=== PATIENT | male | born 1995 | race Caucasian/White ===

== ENCOUNTER 2017-05-10 22:31 | Inpatient (IN) | payer OTHER ==
[~2017-05-10] VITALS: Ht 15.2 cm; Wt 93.9 kg
[2017-05-11 00:14] LABS: MEAN CORPUSCULAR HEMOGLOBIN 31.1 pg (27.0-33.0); MEAN CORPUSCULAR HGB CONC 34.3 g/dl (32.0-36.5); MEAN CORPUSCULAR VOLUME 90.6 fl (80.0-96.0); RED CELL DISTRIBUTION WIDTH 12.2 % (11.5-14.5); WHITE BLOOD COUNT 6.7 K/mm3 (4.0-10.0)
[2017-05-11 00:21] LABS: METHADONE URINE NEGATIVE (NEGATIVE)
[2017-05-11 00:49] LABS: ALBUMIN 4.4 GM/DL (3.2-5.2); ALBUMIN/GLOBULIN RATIO 1.29 (1.00-1.93); ALKALINE PHOSPHATASE 94 U/L (45-117); ALT/SGPT 33 U/L (12-78); ANION GAP 11 MEQ/L (8-16); AST/SGOT 31 U/L (15-37); BILIRUBIN,DIRECT < 0.1 MG/DL (0.0-0.2); BILIRUBIN,TOTAL 0.3 MG/DL (0.2-1.0); BLOOD UREA NITROGEN 11 MG/DL (7-18); CALCIUM LEVEL 8.8 MG/DL (8.5-10.1); CARBON DIOXIDE LEVEL 24 MEQ/L (21-32); CHLORIDE LEVEL 108 MEQ/L (98-107); CREATININE FOR GFR 0.92 MG/DL (0.70-1.30); GLOMERULAR FILTRATION RATE > 60.0 (>60); GLUCOSE, FASTING 93 MG/DL (70-105); POTASSIUM SERUM 4.4 MEQ/L (3.5-5.1); SODIUM LEVEL 143 MEQ/L (136-145); TOTAL PROTEIN 7.8 GM/DL (6.4-8.2)
[2017-05-11] MEDS: NICOTINE 14 MG/24 HR TRANSDERMAL TD SCH (09:00)
[2017-05-11 12:23] VITALS: BP 168/92
[2017-05-11 13:00] VITALS: BP 140/65
[2017-05-11] MEDS ORDERED: MAALOX 30 ML SUSP *UDC PO PRN (13:45)
[2017-05-11] MEDS ORDERED: LORazepam 2 MG TAB PO PRN (13:45)
[2017-05-11] MEDS ORDERED: ACETAMINOPHEN TAB 650MG DOSE (2X325MG) PO PRN (13:45)
[2017-05-11] MEDS ORDERED: MOM 30ML SUSPENSION UDC PO PRN (13:45)
[2017-05-11] MEDS: MULTIVITAMINS/MINERALS THERAP 1 TAB PO SCH (16:47)
[2017-05-11] MEDS: FOLIC ACID 1 MG TAB PO SCH (16:47)
[2017-05-11] MEDS: THIAMINE 100 MG TAB PO SCH ×2 (16:47→21:00)
[2017-05-11 18:00] VITALS: BP 104/50
--- NOTE | 2017-05-11 18:38 | MHHPEPDOC ---
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 He described that extremely intoxicated and began to feel guilt or remorse for his brother's 5 years ago by suicide in the various abuses he felt he had wrought on his stepsister and stepmother. He described that he remembered a small amount of what happened , but stated that he felt that he it stated he wanted his life. Reportedly he had told a friend, whom had brought him to a sr. media manager, that had forwarded him to the emergency room for evaluation. When the patient met with he described that although he was interested in talking to a therapist, he was not experiencing any severe psychiatric symptoms prior to his admission and believes that his presentation is primarily provoked by alcohol. PSYCHIATRIC ROS: Affective: The patient denies any episodes of unprovoked depressed mood associated with neurovegetative symptoms lasting longer than 2 weeks with symptoms present nearly everyday. The patient denies any episodes of euphoria/ dysphoria associated with decreased need for sleep, hedonism, talkatively or impulsivity lasting longer than 5 days. Anxiety: The patient denies any excessive worry associated with physical symptoms. They deny any experience of discreet panic in the past. Trauma: The patient denies any traumatic events associated with nightmares or intrusive thoughts. Psychosis:The patient denies any experiences of auditory or visual hallucinations. They deny any episodes of paranoia or delusional thinking in the past Personality: not screened PAST PSYCHIATRIC HISTORY: Prior Psychiatric Diagnosis: none Previous admissions: none Current Medications: none Suicide attempts: none Psychotropic Medication History: none ALLERGIES: Please see below. FAMILY PSYCHIATRIC HISTORY: brother committed suicide 5 years ago, diagnosis of schizophrenia and mother had a diagnosis of bipolar with hospitalizations. 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 States that he does drink to excess sometimes that during these episodes he does become excessively emotional. MEDICAL HISTORY: None MENTAL STATUS EXAMINATION: General: Well dressed with good hygiene Speech: Spontaneous and fluid Thought processes: Linear and logical Thought content: remorse for his actions Abstract reasoning, and computation: Intact Description of associations: Intact Description of abnormal or psychotic thoughts:Denies any suicidal or homicidal ideation. Denies any auditory or visual hallucinations. Does not appear to be responding to internal stimuli. Does not appear to be endorsing any bizarre or paranoid ideation. Judgment: fair Insight: fair Orientation: Alert and orientated 3 Recent and remote memory: Intact Attention span and concentration: Intact Fund of knowledge: Adequate Mood: "okay" Affect: mildly dysthymic DIAGNOSES: 1. Unspecified depressive disorder rule out substance induced rule out adjustment disorder 2. Alcohol use disorder, moderate, in early remission ASSESSMENT: 22-year-old man with a history of no mental health diagnoses or treatment, presents after becoming intoxicated and claiming suicidal ideation. After becoming sober he has redacted any claims of suicidality PROBLEM LIST: 1. Substance use 2. Ineffective coping 3. Depression INITIAL TREATMENT PLAN: 1. Patient was admitted on a 9.39 legal status. 2. Complete history was obtained. 3. With patients permission, family will be contacted and database will be expanded. 4. Patients medication regimen will be reviewed and changed accordingly. -Placed on alcohol withdrawal protocols 5. Patient will be provided with protected environment. 6. Patient will be treated with individual, group, and milieu therapies. 7. Patient will receive supportive psych-education. 8. Discharge planning will commence immediately. 9. Outpatient follow-up treatment will be strongly recommended. 10. The initial treatment plan will focus initially on: further evaluation ESTIMATED LENGTH OF STAY: 2-3 DAYS. TIME SPENT MINUTES 50 mins Laboratory Data 24H Labs Laboratory Tests 2 05/11/17 00:05: Anion Gap 11, Glomerular Filtration Rate > 60.0, Calcium Level 8.8, Aspartate Amino Transf (AST/SGOT) 31, Alanine Aminotransferase (ALT/SGPT) 33, Alkaline Phosphatase 94, Total Bilirubin 0.3, Direct Bilirubin < 0.1, Total Protein 7.8, Albumin 4.4, Albumin/Globulin Ratio 1.29, Thyroid Stimulating Hormone (TSH) 0.611, Salicylates Level < 1.7L, Urine Amphetamines Screen NEGATIVE, Urine Benzodiazepines Screen NEGATIVE, Urine Opiates Screen NEGATIVE, Urine Methadone Screen NEGATIVE, Acetaminophen Level < 2.0L, Urine Barbiturates Screen NEGATIVE , Urine Phencyclidine Screen NEGATIVE, Urine Cocaine Metabolite Screen NEGATIVE , Urine Cannabinoids Screen NEGATIVE, Ethyl Alcohol Level 0.176H CBC/BMP Laboratory Tests 05/11/17 00:05 Red Blood Count 5.05, Mean Corpuscular Volume 90.6, Mean Corpuscular Hemoglobin 31.1, Mean Corpuscular Hemoglobin Concent 34.3, Red Cell Distribution Width 12.2 Allergies Coded Allergies: Sulfa Antibiotics (Verified Allergy, Unknown, patient does not know, ) GME ATTESTATION My preceptor for this patient encounter was physically present in the building during the encounter and was fully available. As needed, all aspects of the patient interview, examination, medical decision making process, and medical care plan development were reviewed and approved by the preceptor. Preceptor is aware and concurs with the plan as stated in the body of this note and will attest to such by his/her cosignature. KARIE GONSALVES DO May 11, 2017 18:38
[2017-05-12 06:36] VITALS: BP 120/58
[2017-05-12] MEDS: FOLIC ACID 1 MG TAB PO SCH (09:00)
[2017-05-12] MEDS: NICOTINE 14 MG/24 HR TRANSDERMAL TD SCH (09:00)
[2017-05-12] MEDS: MULTIVITAMINS/MINERALS THERAP 1 TAB PO SCH (09:00)
[2017-05-12] MEDS: THIAMINE 100 MG TAB PO SCH ×2 (09:00→22:41)
[2017-05-12 18:00] VITALS: BP 135/69
[2017-05-12 18:29] VITALS: BP 128/69
--- NOTE | 2017-05-12 20:12 | MHIPNPDOC ---
[facility] Progress Note Progress Note DATE OF SERVICE: 05/12/17 INTERVAL HISTORY: Medication Side effects: is on no current psychiatric medications. Behavior/events: no incidents overnight, has been noted to be social with other patients Group Attendance: attendance groups infrequently Psychiatric Symptoms: reports no symptoms of depression or anxiety this time other than the anxiety created by separation his friends. He has no complaints today. VITAL SIGNS: See below. NEW TEST RESULTS: See below CURRENT MEDICATIONS: See below. MENTAL STATUS EXAMINATION: General: Well dressed with good hygiene Speech: Spontaneous and fluid Thought processes: Linear and logical Thought content: future orientated Abstract reasoning, and computation: Intact Description of associations: Intact Description of abnormal or psychotic thoughts:Denies any suicidal or homicidal ideation. Denies any auditory or visual hallucinations. Does not appear to be responding to internal stimuli. Does not appear to be endorsing any bizarre or paranoid ideation. Judgment: improving Insight: improving Orientation: Alert and orientated 3 Recent and remote memory: Intact Attention span and concentration: Intact Fund of knowledge: Adequate Mood: "okay" Affect: Euthymic with a full range DIAGNOSES: 1. Unspecified depressive disorder. 2. Alcohol use disorder, moderate, in early remission ASSESSMENT: improving MANAGEMENT PLAN: Medications: no medications at this time, continue alcohol withdrawal for conservative management Psychotherapy: encourage attendance Social: to a command meeting was 1130 this morning, discharge Monday Misc: none Disposition: The patient will need of further inpatient stay to address disposition needs. TIME SPENT: 15 minutes. Vital Signs Vital Signs Date Time Temp Pulse Resp B/P (MAP) Pulse Ox O2 Delivery O2 Flow Rate FiO2 05/12/17 18:30 Room Air 05/12/17 18:29 55 128/69 05/12/17 18:00 98.5 16 05/11/17 12:23 97 Current Medications Current Medications Acetaminophen (Tylenol Tab) 650 mg Q6HP PRN PO HEADACHE or DISCOMFORT; Start at 13:45; Stop 06/10/17 at 13:44 Al Hydrox/Mg Hydrox/Simethicone (Mylanta) 30 ml Q4HP PRN PO HEARTBURN/ INDIGESTION; Start 05/11/17 at 13:45; Stop 06/10/17 at 13:44 Folic Acid (Folic Acid) 1 mg DAILY PO Last administered on 05/12/17t 09:00; Start 05/11/17 at 09:00; Stop 06/10/17 at 08:59 Lorazepam (Ativan) 2 mg ASDIRECTED PRN PO SEE PROTOCOL; Start 05/11/17 at 13:45 ; Stop 05/18/17 at 13:44 Magnesium Hydroxide (Milk Of Magnesia) 30 ml DAILYPRN PRN PO CONSTIPATION; Start 05/11/17 at 13:45; Stop 06/10/17 at 13:44 Multivitamins (Theragram-M) 1 tab DAILY PO Last administered on 05/12/17 09:00 ; Start 05/11/17 at 09:00; Stop 06/10/17 at 08:59 Nicotine (Nicoderm Cq 14mg) 1 patch DAILY TD ; Start 05/11/17 at 09:00; Stop at 08:59 Thiamine HCl (Thiamine HCl) 100 mg BID PO Last administered on 05/12/17 09:00 ; Start 05/11/17 at 09:00; Stop 05/14/17 at 08:59 Trazodone HCl (Desyrel) 50 mg QHSP PRN PO INSOMNIA; Start 05/11/17 at 13:45; Stop 06/10/17 at 13:44 Allergies Coded Allergies: Sulfa Antibiotics (Verified Allergy, Unknown, patient does not know, ) GME ATTESTATION My preceptor for this patient encounter was physically present in the building during the encounter and was fully available. As needed, all aspects of the patient interview, examination, medical decision making process, and medical care plan development were reviewed and approved by the preceptor. Preceptor is aware and concurs with the plan as stated in the body of this note and will attest to such by his/her cosignature. KARIE GONSALVES DO May 12, 2017 20:12
[2017-05-12 21:00] VITALS: BP 132/74
[2017-05-12] MEDS: traZODone 50 MG TAB PO PRN (22:41)
[2017-05-13 06:00] VITALS: BP 112/58
[2017-05-13] MEDS: NICOTINE 14 MG/24 HR TRANSDERMAL TD SCH (09:00)
[2017-05-13] MEDS: FOLIC ACID 1 MG TAB PO SCH (09:20)
[2017-05-13] MEDS: THIAMINE 100 MG TAB PO SCH ×2 (09:20→21:11)
[2017-05-13] MEDS: MULTIVITAMINS/MINERALS THERAP 1 TAB PO SCH (09:20)
[2017-05-13 12:00] VITALS: BP_SYST 11; BP_SYST 111; BP_DIAS 64; BP_DIAS 69
[2017-05-13 18:00] VITALS: BP 137/69
[2017-05-13 21:00] VITALS: BP 126/72
[2017-05-13] MEDS: traZODone 50 MG TAB PO PRN (23:30)
--- NOTE | 2017-05-14 03:16 | HPE ---
DATE OF ADMISSION: 05/11/2017 HISTORY OF PRESENT ILLNESS: Please refer to psychiatric history and evaluation for further details on this admission. This examination and history is intended for medical issues, which may need treatment, followup or consult on this 22-year-old male. ALLERGIES: SULFA. PRIMARY CARE PROVIDER: [facility]. 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 Ethyl alcohol (EtOH): On weekends he will drink beer or liquor. He chews 3-4 times a week. Recreational drug use: None. PAST MEDICAL HISTORY: Negative. PAST SURGICAL HISTORY: Negative. HOME MEDICATIONS: None. LABORATORY STUDIES: CBC was normal. Sodium 143, potassium 4.4, chloride 108, CO2 24, BUN and creatinine were 11 and 0.92. EtOH was 0.176. REVIEW OF SYSTEMS: 10-system review was done, was unremarkable, no complaints. OBJECTIVE: 22-year-old cooperative male in no acute distress. Blood pressure 132/74, pulse 58, respirations 18, temperature 98. Patient is alert and oriented times three. Pupils equal and react to light. Extraocular muscles intact. Cornea and sclerae clear. Conjunctivae were normal. No facial asymmetry. Pharynx, tongue and gums pink and moist. Tongue is midline. Neck is supple without lymphadenopathy. No thyromegaly, no goiter. Chest clear to auscultation without wheeze or retraction. Heart is regular. Abdomen is benign. Bowel sounds positive. Genitourinary/rectal: Not done. Extremities: Show equal strength, full range of motion. No cyanosis, clubbing or edema. Peripheral pulses equal and palpable bilaterally. Skin is warm and dry. IMPRESSION/PLAN: Psychiatric plan per psychiatry. No acute medical issues.
--- NOTE | 2017-05-14 05:19 | IPN ---
DATE OF SERVICE: 05/13/2017 Evaluated a 22-year-old male who was admitted to the inpatient mental health unit after he got intoxicated with alcohol and during that episode he stated that he was feeling suicidal. He told a friend that he wanted to kill himself and this friend told the home health clinical liaison and the home health clinical liaison took him to the emergency department at [facility]. The patient has consistently denied suicidal ideation, homicidal ideation and psychosis. He states today that "I feel fine." He reports that he has been having good sleep and he reports no medication side effects. On assessment, the patient is alert, oriented times three, with good hygiene, good eye contact, dressed in hospital clothes. His speech is normal, his thought process is intact. His thought content is coherent. His mood and affect are euthymic. He is not responding to internal stimuli, not suicidal and not homicidal. At this moment, the patient is not a danger to self or others. Will followup.
[2017-05-14 06:00] VITALS: BP 107/55
[2017-05-14] MEDS: MULTIVITAMINS/MINERALS THERAP 1 TAB PO SCH (08:58)
[2017-05-14] MEDS: FOLIC ACID 1 MG TAB PO SCH (08:58)
[2017-05-14] MEDS: NICOTINE 14 MG/24 HR TRANSDERMAL TD SCH (09:00)
[2017-05-14 12:00] VITALS: BP 112/53
[2017-05-14 18:00] VITALS: BP 111/61
--- NOTE | 2017-05-14 18:15 | MHIPNPDOC ---
[facility] Progress Note Progress Note DATE OF SERVICE: 05/14/17 INTERVAL HISTORY: Medication Side effects: on no psychiatric medications at this time Behavior/events: has been friendly and amenable staff interventions, no events Group Attendance: has only intermittently gone to groups Psychiatric Symptoms: reports no symptoms of depression, anxiety or other psychiatric complaints today. Is excited about going home, he had questions about a weapons profile that would be placed on him he leaves. He was told that it would be best to ask his commanding officer and behavioral health at [place]. VITAL SIGNS: See below. NEW TEST RESULTS: See below CURRENT MEDICATIONS: See below. MENTAL STATUS EXAMINATION: General: Well dressed with good hygiene Speech: Spontaneous and fluid Thought processes: Linear and logical Thought content: future orientated, excited about discharge Abstract reasoning, and computation: Intact Description of associations: Intact Description of abnormal or psychotic thoughts:Denies any suicidal or homicidal ideation. Denies any auditory or visual hallucinations. Does not appear to be responding to internal stimuli. Does not appear to be endorsing any bizarre or paranoid ideation. Judgment: good Insight: good Orientation: Alert and orientated 3 Recent and remote memory: Intact Attention span and concentration: Intact Fund of knowledge: Adequate Mood: "okay" Affect: Euthymic with a full range DIAGNOSES: 1. Substance induced depressive disorder. 2. Alcohol use disorder, moderate, in early remission. ASSESSMENT: stable, pending discharge MANAGEMENT PLAN: Medications: discontinue trazodone as patient did not want to continue it given the risk of priapism. Psychotherapy: encouragement therapy Social: discharge tomorrow 10 AM, chain of command meeting was were completed Misc: none Disposition: The patient will need of further inpatient stay to address disposition needs. TIME SPENT: 15 minutes. Vital Signs Vital Signs Date Time Temp Pulse Resp B/P (MAP) Pulse Ox O2 Delivery O2 Flow Rate FiO2 05/14/17 12:00 97.7 46 16 112/53 (72) 05/12/17 18:30 Room Air 05/11/17 12:23 97 Current Medications Current Medications Acetaminophen (Tylenol Tab) 650 mg Q6HP PRN PO HEADACHE or DISCOMFORT; Start at 13:45; Stop 06/10/17 at 13:44 Al Hydrox/Mg Hydrox/Simethicone (Mylanta) 30 ml Q4HP PRN PO HEARTBURN/ INDIGESTION; Start 05/11/17 at 13:45; Stop 06/10/17 at 13:44 Folic Acid (Folic Acid) 1 mg DAILY PO Last administered on 05/14/17 08:58; Start 05/11/17 at 09:00; Stop 06/10/17 at 08:59 Lorazepam (Ativan) 2 mg ASDIRECTED PRN PO SEE PROTOCOL; Start 05/11/17 at 13:45 ; Stop 05/14/17 at 11:00; Status DC Magnesium Hydroxide (Milk Of Magnesia) 30 ml DAILYPRN PRN PO CONSTIPATION; Start 05/11/17 at 13:45; Stop 06/10/17 at 13:44 Multivitamins (Theragram-M) 1 tab DAILY PO Last administered on 05/14/17 08:58 ; Start 05/11/17 at 09:00; Stop 06/10/17 at 08:59 Nicotine (Nicoderm Cq 14mg) 1 patch DAILY TD ; Start 05/11/17 at 09:00; Stop at 08:59 Thiamine HCl (Thiamine HCl) 100 mg BID PO Last administered on 05/13/17 21:11 ; Start 05/11/17 at 09:00; Stop 05/14/17 at 08:59; Status DC Trazodone HCl (Desyrel) 50 mg QHSP PRN PO INSOMNIA Last administered on 23:30; Start 05/11/17 at 13:45; Stop 05/14/17 at 12:48; Status DC Allergies Coded Allergies: Sulfa Antibiotics (Verified Allergy, Unknown, patient does not know, ) GME ATTESTATION My preceptor for this patient encounter was physically present in the building during the encounter and was fully available. As needed, all aspects of the patient interview, examination, medical decision making process, and medical care plan development were reviewed and approved by the preceptor. Preceptor is aware and concurs with the plan as stated in the body of this note and will attest to such by his/her cosignature. KARIE GONSALVES DO May 14, 2017 18:15
[2017-05-15 06:26] VITALS: BP 112/60
[2017-05-15] MEDS: NICOTINE 14 MG/24 HR TRANSDERMAL TD SCH (08:52)
[2017-05-15] MEDS: FOLIC ACID 1 MG TAB PO SCH (08:54)
[2017-05-15] MEDS: MULTIVITAMINS/MINERALS THERAP 1 TAB PO SCH (08:54)
[2017-05-15] MEDS ORDERED: NICO14PA TD (10:04)
--- NOTE | 2017-05-15 19:35 | MHDSPDOC ---
[facility] Discharge Summary Discharge Summary DATE OF ADMISSION: May 11, 2017 at 09:51 DATE OF DISCHARGE: May 15, 2017 at 10:30 DISCHARGE DIAGNOSES: 1. Substance-abuse depressive disorder. 2. Alcohol use disorder, moderate, in early admission. REASON FOR ADMISSION: Suicidal statements in the context of being severely intoxicated CONSULTANTS INVOLVED: None TREATMENT AND PROGRESS ON THE UNIT : Legal status on admission: 9.39 Medication Management: patient few psychiatric medications as he believed his statements are primarily due to intoxication. He did try some trazodone for sleep which was helpful, however after being informed of the possible side effect priapism, the patient decided against taking his medication as he was knowledge except that risk. Psychotherapy: he attended groups at times but generally kept to himself Behavior: generally amenable with no acute episodes of agitation Discharge planning: the patient was slated for discharge shortly of presenting as his present symptoms have resolved quickly after his separation from alcohol. Outpatient recommendations: recommend outpatient therapy Pending studies on discharge: none DISCHARGE ASSESSMENT: 22-year-old man presents an intoxicated state after saying suicidal statements, has no psych history and is likely in a state of substance induced depression, the results without any intensive psychiatric interventions. MENTAL STATUS EXAMINATION ON DISCHARGE: General: Well dressed with good hygiene Speech: Spontaneous and fluid Thought processes: Linear and logical Thought content: future oriented, excited to go home Abstract reasoning, and computation: Intact Description of associations: Intact Description of abnormal or psychotic thoughts:Denies any suicidal or homicidal ideation. Denies any auditory or visual hallucinations. Does not appear to be responding to internal stimuli. Does not appear to be endorsing any bizarre or paranoid ideation. Judgment: fair Insight: fair Orientation: Alert and orientated 3 Recent and remote memory: Intact Attention span and concentration: Intact Fund of knowledge: Adequate Mood: "good" Affect: Euthymic with a full range PLAN/FOLLOWUP ARRANGEMENTS: [facility]. The social work team worked during the predischarge meeting in order to evaluate for further issues of lethality address them fully before discharge. They worked on safety planning with the patient's family members in order to ensure that the patient will have a safe and effective discharge. The amount of time spent in the coordination of care for this patient was approximately 30 minutes. Vital Signs/I&Os Vital Signs Date Time Temp Pulse Resp B/P (MAP) Pulse Ox O2 Delivery O2 Flow Rate FiO2 05/15/17 06:26 98.0 38 16 112/60 (77) 05/12/17 18:30 Room Air 05/11/17 12:23 97 Medications Scheduled Nicotine (Nicotine Transdermal Syst) 14 Mg/24 Hr Dis, 1 PATCH TD DAILY for SMOKING CESSATION, #7 Allergies Coded Allergies: Sulfa Antibiotics (Verified Allergy, Unknown, patient does not know, ) GME ATTESTATION My preceptor for this patient encounter was physically present in the building during the encounter and was fully available. As needed, all aspects of the patient interview, examination, medical decision making process, and medical care plan development were reviewed and approved by the preceptor. Preceptor is aware and concurs with the plan as stated in the body of this note and will attest to such by his/her cosignature. KARIE GONSALVES DO May 15, 2017 19:35
== END 2017-05-15 10:30 | disposition home or self-care (01) | DRG 899 ==
LOC: M ED 05-11 06:39 → M ED INP 05-11 09:51 → M PSY 05-11 12:15
PROVIDERS: ADMIT Psychiatry & Neurology Psychiatry; ATTEND Psychiatry & Neurology Psychiatry
DX: F19.14 Other psychoactive substance abuse with psychoactive substance-induced mood disorder (principal); F10.129 Alcohol abuse with intoxication, unspecified; Z88.2 Allergy status to sulfonamides; F17.220 Nicotine dependence, chewing tobacco, uncomplicated

== ENCOUNTER 2020-04-17 17:49 | Inpatient (IN) | payer OTHER ==
[~2020-04-17] VITALS: Ht 182.9 cm; Wt 102.7 kg
[~2020-04-17 17:49] MED LIST: NICO14PA TD
[2020-04-17 19:56] LABS: HEMATOCRIT 46.3 % (42.0-52.0); HEMOGLOBIN 15.7 g/dl (13.5-17.5); MEAN CORPUSCULAR HEMOGLOBIN 30.1 pg (27.0-33.0); MEAN CORPUSCULAR HGB CONC 33.9 g/dl (32.0-36.5); MEAN CORPUSCULAR VOLUME 88.9 fl (80.0-96.0); PLATELET COUNT, AUTOMATED 273 10^3/uL (150-450); RED BLOOD COUNT 5.21 10^6/uL (4.30-6.10); WHITE BLOOD COUNT 7.6 10^3/uL (4.0-10.0)
[2020-04-17 20:01] LABS: AMPHETAMINES LEVEL URINE NEGATIVE (NEGATIVE); BARBITURATES URINE NEGATIVE (NEGATIVE); BENZODIAZEPINES URINE NEGATIVE (NEGATIVE); CANNABINOIDS URINE NEGATIVE (NEGATIVE); COCAINE METABOLITE URINE NEGATIVE (NEGATIVE); METHADONE URINE NEGATIVE (NEGATIVE); OPIATES URINE NEGATIVE (NEGATIVE); PHENCYCLIDINE URINE NEGATIVE (NEGATIVE)
[2020-04-17 20:14] LABS: ACETAMINOPHEN LEVEL < 2.0 UG/ML (10.0-30.0); ALBUMIN 4.4 GM/DL (3.2-5.2); ALT/SGPT 36 U/L (12-78); BILIRUBIN,DIRECT 0.1 MG/DL (0.0-0.2); BILIRUBIN,TOTAL 0.7 MG/DL (0.2-1.0); BLOOD UREA NITROGEN 12 MG/DL (7-18); CALCIUM LEVEL 9.2 MG/DL (8.5-10.1); CARBON DIOXIDE LEVEL 28 MEQ/L (21-32); CHLORIDE LEVEL 105 MEQ/L (98-107); ETHYL ALCOHOL (ETHANOL) < 0.003 % (0.000-0.010); GLOMERULAR FILTRATION RATE > 60.0 (>60); GLUCOSE, FASTING 102 MG/DL (70-100); POTASSIUM SERUM 3.7 MEQ/L (3.5-5.1); SALICYLATE LEVEL < 1.7 MG/DL (5.0-30.0); SODIUM LEVEL 138 MEQ/L (136-145); THYROID STIMULATING HORMONE 0.697 uIU/ML (0.358-3.740); TOTAL PROTEIN 7.9 GM/DL (6.4-8.2)
[2020-04-17] MEDS ORDERED: MOM 30ML SUSPENSION UDC PO PRN (22:15)
[2020-04-17] MEDS ORDERED: ACETAMINOPHEN TAB 650MG DOSE (2X325MG) PO PRN (22:15)
[2020-04-17] MEDS ORDERED: NICOTINE 21MG/24HR 1 EA TRANSDERMAL TD PRN (22:15)
[2020-04-17] MEDS ORDERED: MAALOX 30 ML SUSP *UDC PO PRN (22:15)
[2020-04-17] MEDS: OLANZapine ORAL DISINTEGRATING TAB 5MG PO PRN (23:45)
[2020-04-17] MEDS: traZODone 50 MG TAB PO PRN (23:45)
[2020-04-18 00:41] VITALS: BP 131/73
[2020-04-18 06:03] VITALS: BP 103/66
[2020-04-18] MEDS ORDERED: INFLUENZA QUADRIVALENT PF VACCINE 0.5ML SYRINGE (90686) IM ONE (09:00)
--- NOTE | 2020-04-18 15:53 | HPEPDOC ---
General Date of Admission April 17, 2020 at 22:04 Date of Service: April 18, 2020 Chief Complaint The patient is a 25-year-old male admitted with a reason for visit of Unspecified Anxiety Disorder. History of Present Illness Patient is 25 years old male w/o significant past medical history, who was a dmitted in the hospital with suicidal ideation. He denied any cardiovascular problem, breathing problem, GI problem or dysuria. He denies fever, chills, nausea, vomiting, shortness of breath, palpitations, diarrhea or dysuria Home Medications No Active Prescriptions or Reported Meds Allergies Coded Allergies: Sulfa (Sulfonamide Antibiotics) (Verified Allergy, Intermediate, 04/17/20) Past Medical History Medical History None Family History Mother has diabetes Social History * Smoker: other (vape) Alcohol: occationally Drugs: denies A-FIB/CHADSVASC A-FIB History Current/History of A-Fib/PAF?: No Current PO Anticoag Therapy: No Review of Systems Constitutional: Denies: Chills Eyes: Denies: Pain, Vision change ENT: Denies: Head Aches Skin: Denies: Rash, Lesions Pulmonary: Denies: Dyspnea Cardiovascular: Denies: Chest Pain, Palpitations Gastrointestinal: Denies: Nausea Genitourinary: Denies: Dysuria, Frequency Hematologic: Denies: Bruising Endocrine: Denies: Polydipsia Musculoskeletal: Denies: Neck Pain Neurological: Denies: Weakness, Numbness Psych: Reports: Anxiety, Depression Physical Examination General Exam: Positive: Alert, Cooperative Eye Exam: Positive: PERRLA, Conjunctiva & lids normal ENT Exam: Positive: Atraumatic Neck Exam: Positive: Supple; Negative: JVD Chest Exam: Positive: Clear to auscultation Heart Exam: Positive: Rate Normal Telemetry: Positive: No significant arrhythmia Abdomen Exam: Positive: Normal bowel sounds Extremity Exam: Negative: Clubbing Skin Exam: Positive: Nl turgor and temperature Neuro Exam: Positive: Normal Gait, Strength at 5/5 X4 ext, Cranial Nerves 3-12 NL Psych Exam: Positive: Anxiety, Oriented x 3 Vital Signs Vital Signs Date Time Temp Pulse Resp B/P (MAP) Pulse Ox O2 Delivery O2 Flow Rate FiO2 04/18/20 06:03 98.1 56 14 103/66 (78) 04/18/20 00:41 97 Room Air Laboratory Data Labs 24H Laboratory Tests 2 04/17/20 19:26: Nucleated Red Blood Cells % (auto) 0.0, Urine Opiates Screen NEGATIVE, Urine Methadone Screen NEGATIVE, Urine Barbiturates Screen NEGATIVE, Urine Phencycli dine Screen NEGATIVE, Urine Amphetamines Screen NEGATIVE, Urine Benzodiazepines Screen NEGATIVE, Urine Cocaine Metabolite Screen NEGATIVE, Urine Cannabinoids Screen NEGATIVE 04/17/20 19:27: Anion Gap 5L, Glomerular Filtration Rate > 60.0, Calcium Level 9.2, Total Bilirubin 0.7, Direct Bilirubin 0.1, Aspartate Amino Transf (AST/SGOT) 17, Alanine Aminotransferase (ALT/SGPT) 36, Alkaline Phosphatase 70, Total Protein 7.9, Albumin 4.4, Albumin/Globulin Ratio 1.3, Thyroid Stimulating Hormone (TSH) 0.697, Salicylates Level < 1.7L, Acetaminophen Level < 2.0L, Ethyl Alcohol Level < 0.003 CBC/BMP Laboratory Tests 04/17/20 19:26 04/17/20 19:27 Assessment/Plan Patient is 25 years old male w/o significant past medical history, who was admitted in the hospital with suicidal ideation. He denied any cardiovascular problem, breathing problem, GI problem or dysuria. He denies fever, chills, nausea, vomiting, shortness of breath, palpitations, diarrhea or dysuria Problems (1) Depression Status: Acute Problem Text: Will defer treatment of depression to psych team Plan / VTE VTE Prophylaxis Ordered?: No VTE Exclusion Mechanical Proph: Low Risk for VTE RENEE GLASS DO April 18, 2020 15:53
[2020-04-18 16:15] VITALS: BP 140/75
[2020-04-18] MEDS ORDERED: FLUoxetine 10 MG CAP PO ONE (20:00)
[2020-04-18] MEDS: traZODone 50 MG TAB PO PRN (20:08)
[2020-04-18] MEDS: OLANZapine ORAL DISINTEGRATING TAB 5MG PO PRN (20:08)
[2020-04-19 06:21] VITALS: BP 133/71
[2020-04-19] MEDS: FLUoxetine 10 MG CAP PO SCH (09:07)
[2020-04-19 16:54] VITALS: BP 148/70
[2020-04-19] MEDS: OLANZapine ORAL DISINTEGRATING TAB 5MG PO PRN (20:26)
[2020-04-19] MEDS: traZODone 50 MG TAB PO PRN (20:26)
[2020-04-19] MEDS ORDERED: traZODone 50 MG TAB PO ONE (22:30)
[2020-04-20 06:14] VITALS: BP 140/71
[2020-04-20] MEDS: FLUoxetine 10 MG CAP PO SCH (08:49)
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
[2020-04-20 15:18] VITALS: BP 125/63
[2020-04-20] MEDS: OLANZapine ORAL DISINTEGRATING TAB 5MG PO PRN (19:01)
[2020-04-20] MEDS ORDERED: ARIPiprazole 2 MG TAB PO SCH (21:00)
[2020-04-20] MEDS: traZODone 50 MG TAB PO PRN (21:44)
[2020-04-21 06:10] VITALS: BP 114/58
[2020-04-21] MEDS: FLUoxetine 10 MG CAP PO SCH (08:49)
--- NOTE | 2020-04-21 09:17 | MHIPNPDOC ---
[facility] Progress Note Progress Note The patient was seen on 04/21/20. 25-year-old man is seen in follow-up, he reports no changes in his paranoid thoughts as well as his homicidal urges to harm his child and . The patient reports that he is still feeling quite depressed and paranoid about others. He is still quite guarded during the discussion. Vital Signs Vital Signs Date Time Temp Pulse Resp B/P (MAP) Pulse Ox O2 Delivery O2 Flow Rate FiO2 04/21/20 06:10 97.6 60 16 114/58 (76) 96 Room Air Current Medications Current Medications Medications (Trade) Dose Ordered Sig/Adalberto Route PRN Reason Start Time Stop Time Status Last Admin Dose Admin Acetaminophen (Tylenol Tab) 650 mg Q6HP PRN PO HEADACHE or DISCOMFORT 04/17/20 22:15 Al Hydrox/Mg Hydrox/Simethicone (Mylanta) 30 ml Q4HP PRN PO HEARTBURN/INDIGESTION 04/17/20 22:15 Aripiprazole (AbiLIFY) 2 mg QHS PO 04/20/20 21:00 04/20/20 21:44 Fluoxetine HCl (PROzac) 10 mg DAILY PO 04/19/20 09:00 04/21/20 08:49 Home Med (Med Rec Complete!) ASDIRECTED XX 04/17/20 21:30 04/17/20 21:29 DC Magnesium Hydroxide (Milk Of Magnesia) 30 ml DAILYPRN PRN PO CONSTIPATION 04/17/20 22:15 Nicotine (Nicoderm Cq 21mg) 1 patch DAILY PRN TD Nicotine withdrawl 04/17/20 22:15 Olanzapine (ZyPREXA ZYDIS) 5 mg Q4HP PRN PO AGITATION 04/17/20 22:15 04/20/20 19:01 Trazodone HCl (Desyrel) 50 mg QHSP PRN PO INSOMNIA 04/17/20 22:15 04/20/20 21:44 Allergies Coded Allergies: Sulfa (Sulfonamide Antibiotics) (Verified Allergy, Intermediate, 04/17/20) Review of Systems Review of Systems Skin: Denies: Rash Gastrointestinal: Denies: Nausea, Vomiting, Diarrhea, Constipation Neurological: Denies: Weakness, Numbness Mental Status Examination General Appearance: well groomed Build: average Demeanor: average Eye Contact: avoidant Activity: average Behavior: withdrawn Speech: clear Mood: depressed Affect: constricted Thought Process: logical/linear Thought Content (Delusions): persecutory Thought Content (Other): preoccupied Oriented: Awake, Alert Insight: poor Judgment: Poor Psychosis: Psychotic Perceptions Problem List Problems: (1) OCD (obsessive compulsive disorder) Status: Acute Response to Treatment: Uncontrolled Discussed With: Nurse Problem Specific Plan: Monitor Clinically Problem Text: cotinue prozac 10 mg augment with more abilify at 5mg qhs (2) Paranoia Status: Acute Response to Treatment: Uncompensated Problem Text: increaase abilify (3) Alcohol use disorder Status: Chronic Response to Treatment: Uncontrolled Discussed With: Nurse Problem Specific Plan: Monitor Clinically (4) Homicidal ideation Status: Acute Response to Treatment: Controlled Problem Specific Plan: Monitor Clinically Problem Text: Will check if CPS report filed, no need for tarasof at this time as no plans means or intention at this time (5) Situational disturbance Status: Acute Problem Text: Likely problematic discharge with CPS being involved. Will need to ensure safety of child and prior to discharge. Medications No Active Prescriptions or Reported Meds KARIE GONSALVES DO Apr 21, 2020 09:17
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
[2020-04-21] MEDS: OLANZapine ORAL DISINTEGRATING TAB 5MG PO PRN ×2 (14:41→20:51)
[2020-04-21 17:13] VITALS: BP 136/73
[2020-04-21] MEDS: traZODone 50 MG TAB PO PRN (20:50)
[2020-04-22 06:19] VITALS: BP 109/50
--- NOTE | 2020-04-22 09:17 | MHIPNPDOC ---
[facility] Progress Note Progress Note DATE OF SERVICE: 04/22/20 Events Overnight: none Group Attendance:: intermittent Symptom changes (psych ROS): still reports some frightening thoughts of harming his , he reports better control and less paranoia, he reports that he's open to going today long-term treatment facility Staff Report: staff report. The patient is still quite distorted and paranoid, feeling that others are doing things to him and he is still quite sexually preoccupied. Medical ROS: Gen: -fevers, chills Cardio: -chest pain, palpations Carlyle: -SOB, cough GI: -N,V,D,C Neuro: -tremors, msk stiffness Derm: -rash MSE: General: Well dressed with good hygiene Speech: Spontaneous and fluid Thought processes: Linear and logical Thought content: paranoia, bizarreness Abstract reasoning, and computation: Intact Description of associations: mildly loosened Description of abnormal or psychotic thoughts: ego-dystonic thoughts of harming Judgment: improving Insight: improving Orientation: Alert and orientated 3 Recent and remote memory: Intact Attention span and concentration: Intact Fund of knowledge: Adequate Mood: "okay" Affect: flat with little reactivity Vital Signs Vital Signs Date Time Temp Pulse Resp B/P (MAP) Pulse Ox O2 Delivery O2 Flow Rate FiO2 04/22/20 06:19 97.1 50 16 109/50 (69) 96 Room Air Current Medications Current Medications Medications (Trade) Dose Ordered Sig/Adalberto Route PRN Reason Start Time Stop Time Status Last Admin Dose Admin Acetaminophen (Tylenol Tab) 650 mg Q6HP PRN PO HEADACHE or DISCOMFORT 04/17/20 22:15 Al Hydrox/Mg Hydrox/Simethicone (Mylanta) 30 ml Q4HP PRN PO HEARTBURN/INDIGESTION 04/17/20 22:15 Aripiprazole (AbiLIFY) 2 mg QHS PO 04/20/20 21:00 04/21/20 10:22 DC 04/20/20 21:44 Aripiprazole (AbiLIFY) 5 mg QHS PO 04/21/20 21:00 04/21/20 20:50 Fluoxetine HCl (PROzac) 10 mg DAILY PO 04/19/20 09:00 04/21/20 08:49 Home Med (Med Rec Complete!) ASDIRECTED XX 04/17/20 21:30 04/17/20 21:29 DC Magnesium Hydroxide (Milk Of Magnesia) 30 ml DAILYPRN PRN PO CONSTIPATION 04/17/20 22:15 Nicotine (Nicoderm Cq 21mg) 1 patch DAILY PRN TD Nicotine withdrawl 04/17/20 22:15 Olanzapine (ZyPREXA ZYDIS) 5 mg Q4HP PRN PO AGITATION 04/17/20 22:15 04/21/20 20:51 Trazodone HCl (Desyrel) 50 mg QHSP PRN PO INSOMNIA 04/17/20 22:15 04/21/20 20:50 Allergies Coded Allergies: Sulfa (Sulfonamide Antibiotics) (Verified Allergy, Intermediate, 04/17/20) Problems (1) OCD (obsessive compulsive disorder) Status: Acute Response to Treatment: Uncontrolled Discussed With: Nurse Problem Specific Plan: Monitor Clinically Problem Text: Continue Prozac and increase Abilify to 10 mg nightly (2) Paranoia Status: Acute Response to Treatment: Improving Problem Text: As above (3) Alcohol use disorder Status: Chronic Response to Treatment: Improving Discussed With: Nurse Problem Specific Plan: Monitor Clinically (4) Homicidal ideation Status: Acute Response to Treatment: Improving Problem Specific Plan: Monitor Clinically (5) Situational disturbance Status: Acute Plan / VTE VTE Prophylaxis Ordered?: No Plan Diet: Continue Current Activity: Continue Current Anticipated Discharge: Other Anticipated D/C (Long-term inpatient) KARIE GONSALVES DO Apr 22, 2020 09:17
[2020-04-22] MEDS: FLUoxetine 10 MG CAP PO SCH (09:18)
[2020-04-22] MEDS: OLANZapine ORAL DISINTEGRATING TAB 5MG PO PRN ×2 (09:41→17:51)
[2020-04-22 17:31] VITALS: BP 110/72
[2020-04-22] MEDS: traZODone 50 MG TAB PO PRN (20:43)
[2020-04-23 06:18] VITALS: BP 118/63
[2020-04-23] MEDS: FLUoxetine 10 MG CAP PO SCH (09:01)
[2020-04-23 17:32] VITALS: BP 142/69
[2020-04-23] MEDS: traZODone 50 MG TAB PO PRN (20:40)
[2020-04-24 06:27] VITALS: BP 135/76
[2020-04-24] MEDS: FLUoxetine 10 MG CAP PO SCH (09:50)
[2020-04-24] MEDS: OLANZapine ORAL DISINTEGRATING TAB 5MG PO PRN (14:36)
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
[2020-04-24 17:55] VITALS: BP 140/69
[2020-04-24] MEDS: traZODone 50 MG TAB PO PRN (21:16)
[2020-04-25 06:17] VITALS: BP 128/69
[2020-04-25] MEDS: FLUoxetine 10 MG CAP PO SCH (09:47)
[2020-04-25 15:59] VITALS: BP 122/59
[2020-04-25] MEDS: OLANZapine ORAL DISINTEGRATING TAB 5MG PO PRN (17:47)
[2020-04-25] MEDS: traZODone 50 MG TAB PO PRN (20:27)
[2020-04-26 06:09] VITALS: BP 121/66
[2020-04-26] MEDS: FLUoxetine 10 MG CAP PO SCH (09:10)
[2020-04-26 15:50] VITALS: BP 118/65
[2020-04-26] MEDS: OLANZapine ORAL DISINTEGRATING TAB 5MG PO PRN (20:17)
[2020-04-26] MEDS: traZODone 50 MG TAB PO PRN (20:17)
[2020-04-26] MEDS ORDERED: traZODone 50 MG TAB PO ONE (22:00)
[2020-04-27 06:15] VITALS: BP 116/61
[2020-04-27] MEDS: FLUoxetine 10 MG CAP PO SCH (08:36)
--- NOTE | 2020-04-27 10:02 | MHDSPDOC ---
[facility] Discharge Summary Discharge Summary DATE OF ADMISSION: April 17, 2020 at 22:04 DATE OF DISCHARGE: Apr 27, 2020 at 13:45 DISCHARGE DIAGNOSES: See Problem list below REASON FOR ADMISSION: 25-year-old man is admitted with what appears to be psychotic depression and homicidal thoughts towards his and child CONSULTANTS INVOLVED:[ None (basic hospitalist screening)] TREATMENT AND PROGRESS ON THE UNIT : Medication changes: started on Prozac 10 mg and augmented with Abilify initially at 2 mg increased to a total of 10 mg with positive effects, removing the majority of his symptoms as well as his homicidal ideation. 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 He tolerates it well and makes good improvement. Legal status considerations: The patient at the time of discharge did not meet criteria for involuntary admission/extension due to having a [normal] mental status exam, improved insight into the situation, They are engaged in the discharge process, as well as being friendly and amenable in behavioral control and havent been engaging in any observed concerning behavior or ideation recently. They decline voluntary extension/admission at this time and must be discharged in good kam, as Im unable to make a case for holding the patient against their will. They may have historical risk factors of admissions and other interactions with psychiatry however, those are not modifiable from a clinical perspective. The patient will need to be discharged in good kam. MENTAL STATUS EXAMINATION ON DISCHARGE: [General: Well dressed with good hygiene Speech: Spontaneous and fluid Thought processes: Linear and logical Thought content: Future orientated Abstract reasoning, and computation: Intact Description of associations: Intact Description of abnormal or psychotic thoughts:Denies any suicidal or homicidal ideation. Denies any auditory or visual hallucinations. Does not appear to be responding to internal stimuli. Does not appear to be endorsing any bizarre or paranoid ideation. Judgment: fair Insight: fair Orientation: Alert and orientated 3 Recent and remote memory: Intact Attention span and concentration: Intact Fund of knowledge: Adequate Mood: "okay" Affect: Euthymic with a full range] PLAN/FOLLOWUP ARRANGEMENTS: Follow up appointments made (PCP and MH in 5 days of D/C date) and safety plan completed. Safety Planning aspects completed prior to discharge [DOD: placed in barracks under watch with order] [DOD: Weapons Profile 30 days] [Medication supplies limited to 7 days with 4 refills to prevent accumulation to OD] [Family contact completed, educated on safe practices, instructed on removal and mitigation of dangerous means] [RN reviewed crisis hotline information and other aspects to empower patient to access care in interim before next appointment.] The amount of time spent in the coordination of care for this patient was approximately 30 minutes. Vital Signs/I&Os Vital Signs Date Time Temp Pulse Resp B/P (MAP) Pulse Ox O2 Delivery O2 Flow Rate FiO2 04/27/20 06:15 97.8 50 12 116/61 (79) Room Air 04/26/20 06:09 98 Medications Scheduled Aripiprazole (Abilify) 5 Mg Tablet, 10 MG PO QHS for thoughts for 7 Days, #14 Fluoxetine Hcl (Fluoxetine HCl) 10 Mg Capsule, 10 MG PO DAILY for mood for 7 Days, #7 Scheduled PRN Hydroxyzine HCl (Hydroxyzine HCl) 25 Mg Tablet, 1 TAB PO BID PRN for ANXIETY/AGITATION for 7 Days, #14 Nicotine (Nicotine Patch) 21 Mg Patch.td24, 1 PATCH TD DAILY PRN for Nicotine withdrawl for 30 Days, #30 Allergies Coded Allergies: Sulfa (Sulfonamide Antibiotics) (Verified Allergy, Intermediate, 04/17/20) Problems (1) Major depressive disorder with psychotic features Status: Resolved (2) Alcohol use disorder Status: Chronic (3) Homicidal ideation Status: Resolved Plan / VTE VTE Prophylaxis Ordered?: No KARIE GONSALVES DO Apr 27, 2020 10:02
[2020-04-27] MEDS ORDERED: NICO21PAT TD (13:26)
[2020-04-27] MEDS ORDERED: FLUO10CA15 PO (13:26)
[2020-04-27] MEDS ORDERED: ABIL1TAB11 PO (13:26)
[2020-04-27] MEDS ORDERED: HYDR-3363 PO (13:42)
== END 2020-04-27 13:45 | disposition home or self-care (01) | DRG 885 ==
LOC: M ED 17:49 → M ED INP 22:04 → M PSY 22:45
PROVIDERS: ADMIT Psychiatry & Neurology Psychiatry; ATTEND Psychiatry & Neurology Addiction Medicine
DX: F32.3 Major depressive disorder, single episode, severe with psychotic features (principal); F10.10 Alcohol abuse, uncomplicated; R45.850 Homicidal ideations; Z88.2 Allergy status to sulfonamides

== ENCOUNTER → 2020-06-27 | Outpatient (REF) | payer OTHER ==
[~2020-06-27] MED LIST changes: +ABIL1TAB11 PO; +FLUO10CA16 PO; +HYDR-3363 PO; +NICO21PAT TD
[2020-07-25 09:30] LABS: APPEARANCE, URINE CLEAR (CLEAR); BACTERIA, URINE AUTO NEGATIVE (NEGATIVE); BILIRUBIN, URINE AUTO NEGATIVE (NEGATIVE); BLOOD, URINE BLOOD 1+ (NEGATIVE); COLOR, URINE YELLOW (YELLOW); GLUCOSE, URINE (UA) AUTO NEGATIVE (NEGATIVE); KETONE, URINE AUTO NEGATIVE (NEGATIVE); LEUKOCYTE ESTERASE, URINE AUTO NEGATIVE (NEGATIVE); MUCUS, URINE SMALL (NEGATIVE); NITRITE, URINE AUTO NEGATIVE (NEGATIVE); PROTEIN, URINE AUTO 1+ mg/dL (NEGATIVE); RBC, URINE AUTO 0 /HPF (0-3); SPECIFIC GRAVITY URINE AUTO 1.023 (1.002-1.035); SQUAMOUS EPITHELIAL CELL UR AU 0 /HPF (0-6); UROBILINOGEN, URINE AUTO 0.2 mg/dL (0.0-2.0); WBC, URINE AUTO 5 /HPF (0-3)
== END ==
LOC: M LAB REF 09:49
PROVIDERS: ATTEND Physician Assistant Medical
DX: N39.0 Urinary tract infection, site not specified (principal)